=== PATIENT | female | born 1940 | race Caucasian/White ===

== ENCOUNTER 2022-11-07 12:29 | Emergency (ER) | payer OTHER, MEDICARE ==
[~2022-11-07] VITALS: Ht 175.3 cm; Wt 49.9 kg
[~2022-11-07 12:29] MED LIST: AMAN68.5 PO; ANAS1TAB51 PO; CARB1CAP PO; CARB1TAB10 PO; LITH300C2 PO; NITR-85 PO; PROP150T3 PO; SELE5TAB6 PO; SIMV10TA97 PO; TROS60CA3 PO
[2022-11-07 12:39] VITALS: BP_SYST 159
--- NOTE | 2022-11-07 13:05 | NUR ---
MD MILTON AT BEDSIDE FOR MSE.
--- NOTE | 2022-11-07 13:18 | NUR ---
COVID SWAB OBTAINED AND SENT TO LAB.
[2022-11-07 13:53] LABS: BASOPHILS % (AUTO) 0.4 % (0.0-2.0); EOSINOPHILS # (AUTO) 0.5 K/uL (0.0-0.4); EOSINOPHILS % (AUTO) 7.8 % (0.0-4.0); HEMATOCRIT 37.2 % (36-48); HEMOGLOBIN 12.5 g/dL (12.0-16.0); LYMPHOCYTES # (AUTO) 1.1 K/uL (1.0-5.5); LYMPHOCYTES % (AUTO) 18.3 % (20.5-51.5); MEAN CORPUSCULAR HEMOGLOBIN 30 pg (27-31); MEAN CORPUSCULAR HGB CONC 34 % (32-36); MEAN CORPUSCULAR VOLUME 91 fL (79.0-98.0); MONOCYTES # (AUTO) 0.5 K/uL (0.0-1.0); MONOCYTES % (AUTO) 8.6 % (1.7-9.3); NEUTROPHILS % (AUTO) 64.9 % (40.0-70.0); PLATELET COUNT (AUTO) 267 K/uL (130-430); RED BLOOD CELL COUNT(AUTO) 4.11 MIL/uL (4.2-6.2); RED CELL DISTRIBUTION WIDTH 14.1 % (9.0-15.0); WHITE BLOOD COUNT (AUTO) 6.2 K/uL (4.8-10.8)
[2022-11-07 14:10] LABS: ANION GAP 10 (5-15); CALCIUM 9.6 mg/dL (8.4-11.0); CHLORIDE 104 mmol/L (98-107); CREATININE 0.74 mg/dL (0.55-1.30); GLUCOSE 139 mg/dL (70-99); UREA NITROGEN, BLOOD 27 mg/dL (8-21)
[2022-11-07 14:17] LABS: ALANINE AMINOTRANSFERASE 8 U/L (12-78); ALBUMIN 3.8 g/dL (3.4-4.8); ASPARTATE AMINOTRANSFERASE 12 U/L (10-37); TOTAL BILIRUBIN 0.4 mg/dL (0.0-1.0)
[2022-11-07] MEDS ORDERED: LIDOCAINE/EPI 2% 1:100000 20 ML VIAL INJ ONE (14:45)
--- NOTE | 2022-11-07 15:15 | NUR ---
PT PLACED IN C-SPINE PRECAUTIONS, C COLLAR IN PLACE. PT HAS C2 DONTOID FX, UNSTABLE PER RADIOLOGY.
[2022-11-07] MEDS ORDERED: NACL 0.9% 1,000 ML IV ONE (16:30)
--- NOTE | 2022-11-07 17:39 | NUR ---
REPORT CALLED TO [facility]KI RUELAS. ALL QUESTIONS ANSWERED. PT VSS. NAD NOTED. IN C-SPINE PRECAUTIONS. F/C IN PLACE PER MD MCKENZIE. 20G IV TO LEFT AC. AAOX4. AT BEDSIDE. ETA FOR [facility] IS 1800. PT BEING TRANSFERRED FOR TRAUMA/HIGHER LEVEL OF CARE WITH C2 FX DEEMED UNSTABLE.
[2022-11-07 18:30] VITALS: BP_SYST 153
--- NOTE | 2022-11-07 18:31 | NUR ---
CARE ENDORSED TO UNIT #[facility]. PT VSS. NAD NOTED. REPORT TO [facility] MIKI RUELAS. PT AAOX4. PT TO Stuart BOWDEN-SPINE PRECAUTIONS MAINTAINED. END OF CARE.
== END 2022-11-07 18:30 | disposition short-term general hospital (02) ==
LOC: SED 12:29
DX: S12.9XXA Fracture of neck, unspecified, initial encounter (principal); S01.81XA Laceration without foreign body of other part of head, initial encounter; Z79.899 Other long term (current) drug therapy; Z20.822 Contact with and (suspected) exposure to COVID-19; W01.0XXA Fall on same level from slipping, tripping and stumbling without subsequent striking against object, initial encounter; Y93.89 Activity, other specified; Y92.89 Other specified places as the place of occurrence of the external cause; Y99.8 Other external cause status
CPT/HCPCS: 99291; 70450; 96360; 87426; 80053; 85025; 87040; 84484; 36415; 72125; 76376; 99292; 83605; 12014; 96372; 93005; J7030